=== PATIENT | female | born 2005 | race Caucasian/White ===

== ENCOUNTER 2024-06-30 12:47 | Inpatient (IN) | payer MEDICAID ==
[2024-06-30] VITALS (17 sets, daily range): BP systolic 97–120; BP diastolic 59–79; TEMP 98.3; O2SAT 98–100
[~2024-06-30] VITALS: Ht 154.9 cm; Wt 55.3 kg
[2024-06-30] MEDS: IV NS 0.9% 1,000 ML BAG IV ONE (13:01)
[2024-06-30 13:35] LABS: ALANINE AMINOTRANSFERASE 42 U/L (12-78); ALBUMIN 3.1 g/dL (3.4-5.0); ALKALINE PHOSPHATASE 134 U/L (46-116); ASPARTATE AMINOTRANSFERASE 29 U/L (15-37); BILIRUBIN,TOTAL 0.9 mg/dL (0.2-1.0); CALCIUM, SERUM 8.3 mg/dL (8.5-10.1); CHLORIDE 95 mmol/L (98-107); POTASSIUM 4.7 mmol/L (3.5-5.1); SODIUM SERUM 132 mmol/L (136-145); TOTAL PROTEIN, SERUM 6.2 g/dL (6.4-8.2); UREA NITROGEN, BLOOD 11 mg/dL (7-18)
[2024-06-30 13:39] LABS: CARBON DIOXIDE 9 mmol/L (21-32); GLUCOSE 643 mg/dL (74-106)
[2024-06-30 13:48] LABS: ACETONE, SERUM LARGE (NEGATIVE)
[2024-06-30 13:57] LABS: BASOPHILS # (AUTO) 0.1 K/uL (0.0-0.2); BASOPHILS % (AUTO) 0.7 % (0.0-2.0); EOSINOPHILS % (AUTO) 0.4 % (0.0-6.0); HEMATOCRIT 37 % (33-45); HEMOGLOBIN 11.7 g/dL (11.5-14.8); LYMPHOCYTES # (AUTO) 1.5 K/uL (0.8-4.8); LYMPHOCYTES % (AUTO) 13.9 % (20.0-44.0); MEAN CORPUSCULAR HEMOGLOBIN 31 PG (26.0-33.0); MEAN CORPUSCULAR HGB CONC 31 g/dl (31.0-36.0); MEAN CORPUSCULAR VOLUME 98 fL (82-100); MONOCYTES # (AUTO) 0.5 K/uL (0.1-1.30); MONOCYTES % (AUTO) 4.4 % (2.0-12.0); NEUTROPHILS # (AUTO) 8.5 K/uL (1.8-8.9); NEUTROPHILS % (AUTO) 80.6 % (43.0-81.0); PLATELET COUNT (AUTO) 336 K/uL (150-450); RED BLOOD CELL COUNT(AUTO) 3.79 MIL/uL (4.0-5.2); RED CELL DISTRIBUTION WIDTH 14.9 % (11.5-15.0); WHITE BLOOD COUNT (AUTO) 10.5 K/uL (4.3-11.0)
[2024-06-30] MEDS ORDERED: INSULIN REGULAR, HUMAN 100 UNITS in IV NS 0.9% 100 ML IV PRN (14:00)
[2024-06-30] MEDS ORDERED: BUSP15TA3 PO (14:17)
[2024-06-30] MEDS ORDERED: INSU100I4 SQ (14:17)
[2024-06-30] MEDS ORDERED: DEXT5TAB15 PO (14:17)
[2024-06-30] MEDS ORDERED: INSU100I30 SQ (14:17)
[2024-06-30] MEDS ORDERED: LITH300T3 PO (14:17)
[2024-06-30] MEDS ORDERED: FLUO20CA36 PO (14:17)
[2024-06-30] MEDS ORDERED: ARIP10TA9 PO (14:17)
[2024-06-30] MEDS: IV PREMIX NS +20MEQ KCL 1 L IV PRN (14:19)
[2024-06-30 14:23] LABS: MAGNESIUM 1.9 mg/dL (1.8-2.4)
[2024-06-30] MEDS ORDERED: ACETAMINOPHEN 325 MG TABLET PO PRN (14:30)
[2024-06-30] MEDS ORDERED: MAGNESIUM HYDROXIDE 30 ML UDC PO PRN (14:30)
[2024-06-30] MEDS ORDERED: INSULIN REGULAR, HUMAN 100 UNIT in IV NS 0.9% 99 ML IV PRN (14:30)
[2024-06-30] MEDS ORDERED: HYDROCODONE/APAP 5/325MG TABLET PO PRN (14:30)
[2024-06-30] MEDS ORDERED: ONDANSETRON HCL/PF 4 MG/2 ML VIAL IVP PRN (14:30)
[2024-06-30] MEDS ORDERED: Z GUARD REMEDY 4 OZ OINT TP PRN (14:30)
[2024-06-30] MEDS ORDERED: MAG HYDROX/AL HYDROX/SIMETH 30 ML UDC PO PRN (14:30)
[2024-06-30 14:33] LABS: APPEARANCE,URINE CLEAR (CLEAR); BILIRUBIN,URINE NEGATIVE (NEGATIVE); BLOOD, URINE NEGATIVE Ery/uL (NEGATIVE); COLOR,URINE OTHER (YELLOW); KETONES,URINE 3+ mg/dL (NEGATIVE); LEUKOCYTE ESTERASE ,URINE NEGATIVE (NEGATIVE); NITRITE, URINE NEGATIVE (NEGATIVE); PROTEIN,URINE NEGATIVE (NEGATIVE); UGLUCOSE 3+ mg/dL (NEGATIVE); UROBILINOGEN,URINE 0.2 EU/dL (0.2)
[2024-06-30 14:42] LABS: ADD URINE CULTURE NO; BACTERIA,URINE Rare /HPF (None Seen); MUCUS,URINE Few /LPF (None Seen); RBC,URINE 0-2 /HPF (0-2); SQUAMOUS EPITHELIAL CELL,UR 0-2 /HPF (None Seen); WBC,URINE 0-2 /HPF (0-3); YEAST,URINE Rare /HPF (None Seen)
[2024-06-30] MEDS: INSULIN REGULAR, HUMAN 100 UNIT in IV NS 0.9% 99 ML IV PRN (14:42)
[2024-06-30] MEDS ORDERED: PANTOPRAZOLE 40 MG VIAL ONE (14:48)
[2024-06-30] MEDS: PANTOPRAZOLE 40 MG VIAL IV SCH (14:48)
[2024-06-30 16:44] LABS: CALCIUM, SERUM 7.8 mg/dL (8.5-10.1); MAGNESIUM 1.7 mg/dL (1.8-2.4); PHOSPHORUS 4.1 mg/dL (2.5-4.9); POTASSIUM 4.2 mmol/L (3.5-5.1)
[2024-06-30] MEDS ORDERED: BLOOD SUGAR DIAGNOSTIC 1 EACH STRIP IN SCH (19:00)
[2024-06-30 19:03] LABS: CALCIUM, SERUM 7.5 mg/dL (8.5-10.1); CREATININE 1.1 mg/dL (0.6-1.3); MAGNESIUM 1.6 mg/dL (1.8-2.4); POTASSIUM 3.8 mmol/L (3.5-5.1)
[2024-06-30] MEDS: IV NS 0.9% 1,000 ML IV PRN (19:07)
[2024-06-30] MEDS: BLOOD SUGAR DIAGNOSTIC 1 EACH STRIP IN ONE (19:10)
[2024-06-30 20:30] LABS: CALCIUM, SERUM 7.5 mg/dL (8.5-10.1); POTASSIUM 3.9 mmol/L (3.5-5.1)
[2024-06-30] MEDS: BLOOD SUGAR DIAGNOSTIC 1 EACH STRIP IN SCH (20:46)
[2024-06-30] MEDS ORDERED: Potassium Chloride 10 MEQ in IV NS 0.9% 1,000 ML IV PRN (21:00)
[2024-06-30] MEDS ORDERED: POTASSIUM CHLORIDE 10 MEQ/50 ML PREMIXED IVPB FOR PERIPHERAL LINE IV ONE (21:00)
[2024-06-30] MEDS ORDERED: Magnesium 1 GM/2 ML VIAL IV ONE (21:00)
[2024-06-30 22:20] LABS: CALCIUM, SERUM 7.7 mg/dL (8.5-10.1); CREATININE 0.9 mg/dL (0.6-1.3); POTASSIUM 3.6 mmol/L (3.5-5.1)
[2024-06-30] MEDS: IV D5/0.45 NACL 1,000 ML IV PRN (22:31)
[2024-06-30] MEDS: Magnesium 1GM/D5W 100ML PREMIX 100 ML IV SCH (22:33)
[2024-06-30] MEDS: POTASSIUM CL. PREMIX PERIPHER. 50 ML IV SCH (23:10)
[2024-07-01] VITALS (20 sets, daily range): BP systolic 90–114; BP diastolic 52–84; TEMP 98–99; O2SAT 97–100
[2024-07-01] MEDS: INSULIN GLARGINE, 100 UNIT/ML CARTRIDGE SQ ONE (01:00)
[2024-07-01 03:58] LABS: BASOPHILS % (AUTO) 0.3 % (0.0-2.0); EOSINOPHILS % (AUTO) 0.3 % (0.0-6.0); HEMATOCRIT 36 % (33-45); HEMOGLOBIN 11.5 g/dL (11.5-14.8); LYMPHOCYTES # (AUTO) 1.5 K/uL (0.8-4.8); LYMPHOCYTES % (AUTO) 9.9 % (20.0-44.0); MEAN CORPUSCULAR HEMOGLOBIN 31 PG (26.0-33.0); MEAN CORPUSCULAR HGB CONC 32 g/dl (31.0-36.0); MEAN CORPUSCULAR VOLUME 97 fL (82-100); MONOCYTES # (AUTO) 0.7 K/uL (0.1-1.30); MONOCYTES % (AUTO) 4.7 % (2.0-12.0); NEUTROPHILS # (AUTO) 12.9 K/uL (1.8-8.9); NEUTROPHILS % (AUTO) 84.8 % (43.0-81.0); PLATELET COUNT (AUTO) 125 K/uL (150-450); RED BLOOD CELL COUNT(AUTO) 3.71 MIL/uL (4.0-5.2); RED CELL DISTRIBUTION WIDTH 14.9 % (11.5-15.0); WHITE BLOOD COUNT (AUTO) 15.3 K/uL (4.3-11.0)
[2024-07-01 04:13] LABS: MAGNESIUM 2.6 mg/dL (1.8-2.4); PHOSPHORUS 3.3 mg/dL (2.5-4.9)
[2024-07-01 04:33] LABS: CHOLESTEROL 153 mg/dL (<200); HDL CHOLESTEROL 39 mg/dL (40-60); LDL 96 mg/dL (0-99); TRIGLYCERIDES 104 mg/dL (30-150)
[2024-07-01 04:44] LABS: CALCIUM, SERUM 7.8 mg/dL (8.5-10.1); CREATININE 0.8 mg/dL (0.6-1.3)
[2024-07-01 05:08] LABS: POTASSIUM 4.9 mmol/L (3.5-5.1)
[2024-07-01] MEDS: INSULIN REGULAR, HUMAN 100 UNIT/ML 3 ML VIAL SQ PRN ×2 (05:43→09:06)
[2024-07-01] MEDS ORDERED: DEXTROSE 50%-WATER 50 ML DISP.SYRIN IV PRN ×2 (07:00)
[2024-07-01] MEDS ORDERED: *INSULIN REGULAR(HUMULIN R)HUM 100 UNIT/ML VIAL SQ PRN ×2 (07:00)
[2024-07-01] MEDS ORDERED: BLOOD SUGAR DIAGNOSTIC 1 EACH STRIP VI SCH (07:30)
[2024-07-01] MEDS: BLOOD SUGAR DIAGNOSTIC 1 EACH STRIP IN SCH (08:25)
[2024-07-01 12:05] LABS: CALCIUM, SERUM 8.2 mg/dL (8.5-10.1); POTASSIUM 4.7 mmol/L (3.5-5.1)
[2024-07-01] MEDS: IV NS 0.9% 1,000 ML IV PRN (13:00)
[2024-07-01] MEDS: INSULIN GLARGINE, 100 UNIT/ML CARTRIDGE SQ SCH (13:05)
[2024-07-01] MEDS: FLUOXETINE HCL 20 MG CAPSULE PO SCH (13:53)
[2024-07-01] MEDS: busPIRone 5 MG TABLET PO SCH (16:33)
[2024-07-01 18:35] LABS: CALCIUM, SERUM 8.4 mg/dL (8.5-10.1); CREATININE 0.8 mg/dL (0.6-1.3); POTASSIUM 3.7 mmol/L (3.5-5.1)
[2024-07-01] MEDS: LITHIUM CARBONATE (300 MG CAP) 300 MG CAPSULE PO SCH (23:19)
[2024-07-02 06:55] LABS: BASOPHILS % (AUTO) 0.6 % (0.0-2.0); EOSINOPHILS # (AUTO) 0.1 K/uL (0.0-0.7); HEMATOCRIT 33 % (33-45); HEMOGLOBIN 10.8 g/dL (11.5-14.8); LYMPHOCYTES % (AUTO) 32.8 % (20.0-44.0); MEAN CORPUSCULAR HEMOGLOBIN 31 PG (26.0-33.0); MEAN CORPUSCULAR HGB CONC 33 g/dl (31.0-36.0); MEAN CORPUSCULAR VOLUME 94 fL (82-100); MONOCYTES # (AUTO) 0.5 K/uL (0.1-1.30); MONOCYTES % (AUTO) 7.3 % (2.0-12.0); NEUTROPHILS # (AUTO) 3.6 K/uL (1.8-8.9); NEUTROPHILS % (AUTO) 57.3 % (43.0-81.0); PLATELET COUNT (AUTO) 262 K/uL (150-450); RED BLOOD CELL COUNT(AUTO) 3.52 MIL/uL (4.0-5.2); RED CELL DISTRIBUTION WIDTH 14.3 % (11.5-15.0); WHITE BLOOD COUNT (AUTO) 6.2 K/uL (4.3-11.0)
[2024-07-02 07:16] LABS: CALCIUM, SERUM 8.1 mg/dL (8.5-10.1); CREATININE 0.6 mg/dL (0.6-1.3); POTASSIUM 3.4 mmol/L (3.5-5.1)
[2024-07-02] MEDS: ARIPIPRAZOLE 5 MG TABLET PO SCH (08:52)
[2024-07-02] MEDS: PANTOPRAZOLE 40 MG TABLET.DR PO SCH (08:52)
[2024-07-02] MEDS ORDERED: AMPHET ASP PO SCH (09:00)
[2024-07-02] MEDS ORDERED: D AMPHET PO SCH (09:00)
[2024-07-02] MEDS ORDERED: AMPHET PO SCH (09:00)
[2024-07-02] MEDS: POTASSIUM CHLORIDE 20 MEQ TAB.PRT.SR PO ONE (09:30)
[2024-07-02 15:57] LABS: PREGNANCY TEST URINE QUAL NEGATIVE (NEGATIVE)
[2024-07-02 16:11] LABS: CREATININE, URINE 63.1 MG/DL (30.0-125.0); URINE TOTAL PROTEIN 16.7 mg/dL (0-11.9)
== END 2024-07-02 12:31 | disposition home or self-care (01) | DRG 420 ==
LOC: ER 12:50 → ICU 14:06 → MED 07-01 18:33
PROVIDERS: ADMIT Nurse Practitioner Acute Care; ATTEND Nurse Practitioner Acute Care
DX: E10.10 Type 1 diabetes mellitus with ketoacidosis without coma (principal); E86.0 Dehydration; E86.1 Hypovolemia; Z79.4 Long term (current) use of insulin; Z91.018 Allergy to other foods; Z79.899 Other long term (current) drug therapy; E87.6 Hypokalemia; F32.A Depression, unspecified
CPT/HCPCS: 36415; 80048-TC; 80053-TC; 80061-TC; 81001; 82010-TC; 82570-TC; 82962-TC; 83735-TC; 83935-TC; 84100-TC; 84300-TC; 84703-TC; 85025-TC; 87081-TC; A4223; G0378; J1815; J2470; J3475; J3480; J3490; J7030; J7040; J7050